=== PATIENT | male | born 1995 | race Caucasian/White ===

== ENCOUNTER 2019-02-12 12:49 | Emergency (ER) | payer SELFPAY ==
[2019-02-12] MEDS ORDERED: Sodium Chloride 0.9% 10 ML Syringe FLUSH PRN (12:59)
[2019-02-12] MEDS ORDERED: Sodium Chloride 0.9% 1,000 ML IV ONE ×2 (13:10→14:52)
[2019-02-12] MEDS ORDERED: LORazepam 2 MG/ML SDV IM ONE (13:25)
[2019-02-12] MEDS ORDERED: Norflurane/HFc 245FA Medium Stream Spray 103.5 ML Can ONE (13:51)
[2019-02-12] MEDS ORDERED: methylPREDNISolone Sodium Succinate 40 MG/1 ML SDV IVPUSH ONE (14:16)
[2019-02-12] MEDS ORDERED: cefTRIAXone 1 GM in Sodium Chloride 0.9% 100 ML IV ONE (14:18)
[2019-02-12] MEDS ORDERED: Morphine 2 MG/ML Syringe IVPUSH ONE (14:20)
[2019-02-12] MEDS ORDERED: diphenhydrAMINE 50 MG/ML SDV IVPUSH ONE (14:20)
[2019-02-12 14:35] LABS: CHLORIDE,CL 100 mmol/L (98-107); SODIUM,NA 135 mmol/L (136-145)
[2019-02-12 17:37] LABS: BARBITURATE SCREEN,URINE NEGATIVE (NEGATIVE); BENZODIAZEPINES SCREEN,URINE NEGATIVE (NEGATIVE); TCA SCREEN,URINE NEGATIVE (NEGATIVE); THC SCREEN,URINE 50 NG/ML NEGATIVE (NEGATIVE)
--- NOTE | 2019-02-12 17:50 | EDM.PDOC ---
ED HPI GENERAL MEDICAL PROBLEM - General Chief Complaint: ENT Problem Stated Complaint: sore throat, fever Time Seen by Provider: 02/12/19 13:09 Source of Information: Reports: Patient History Limitations: Reports: No Limitations - History of Present Illness INITIAL COMMENTS - FREE TEXT/NARRATIVE: Patient comes to ER complaining of severe sore throat, fever, present since Sunday. No nausea/emesis. Mild runny nose. No cough/SOB. No other pain complaint. ROS otherwise negative. Reports that he took 8 OTC Ibuprofen at once. 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 - Related Data Allergies Allergy/AdvReac Type Severity Reaction Status Date / Time No Known Allergies Allergy Verified 02/12/19 12:51 Home Meds: Home Meds Penicillin V Potassium 500 mg PO BID #20 tablet 02/12/19 [Rx] Past Medical History - Past Health History Medical/Surgical History: Denies Medical/Surgical History Psychiatric History: Reports: Addiction (Meth), Anxiety, Other (See Below) ( Self harm/cutting in past) Social & Family History - Tobacco Use Smoking Status *Q: Unknown Ever Smoked - Recreational Drug Use Recreational Drug Use: Yes Recreational Drug Type: Reports: Amphetamines (Speed), Marijuana/Hashish, Methamphetamine ED ROS ENT - Review of Systems Review Of Systems: ROS reveals no pertinent complaints other than HPI. ED EXAM, ENT - Physical Exam Exam: See Below Exam Limited By: No Limitations General Appearance: Alert, Anxious (extremely anxious, crying about having blood draw) Eye Exam: Bilateral Eye: EOMI, PERRL Ears: Normal External Exam, Normal Canal, Hearing Grossly Normal, Normal TMs Nose: Normal Inspection Mouth/Throat: Normal Lips, Pharyngeal Erythema, Tonsillar Erythema, Tonsillar Exudates, Tonsillar Swelling. No: Peritonsillar Mass, Throat Swelling, Tongue Swelling, Uvular Deviation, Uvular Edema Head: Atraumatic, Normocephalic Neck: Supple, Non-Tender. No: Lymphadenopathy (L), Lymphadenopathy (R) Respiratory/Chest: No Respiratory Distress, Lungs Clear, Normal Breath Sounds, No Accessory Muscle Use, Chest Non-Tender Cardiovascular: No Murmur, Tachycardia GI/Abdominal: Normal Bowel Sounds, Soft, Non-Tender, No Distention (Male) Exam: Deferred Rectal (Males) Exam: Deferred Back: No: CVA Tenderness (L), CVA Tenderness (R), Muscle Spasm, Paraspinal Tenderness, Vertebral Tenderness Extremities: Normal Range of Motion, Non-Tender, Slow Capillary Refill (mild) Neurological: Alert, Oriented, No Motor/Sensory Deficits Psychiatric: Anxious, Tearful Skin: Warm, Dry, Intact, Normal Color, No Rash Course - Vital Signs Last Recorded V/S: Last Vital Signs Temp 39.5 C H 02/12/19 12:54 Pulse 109 H 02/12/19 12:54 Resp 22 H 02/12/19 12:54 BP 108/59 L 02/12/19 12:54 Pulse Ox 99 02/12/19 12:54 - Orders/Labs/Meds Orders: Active Orders 24 hr Category Date Time Status Peripheral IV Care [RC] . DIRECTED Care 02/12/19 13:00 Active Sodium Chloride 0.9% [Saline Flush] Med 02/12/19 12:59 Active 10 ml FLUSH ASDIRECTED PRN Peripheral IV Insertion Adult [OM.PC] Routine Oth 02/12/19 12:59 Ordered Medication Orders Sodium Chloride (Saline Flush) 10 ml FLUSH ASDIRECTED PRN PRN Reason: Keep Vein Open Labs: Laboratory Tests 02/12/19 02/12/19 02/12/19 Range/Units 14:15 14:15 14:15 WBC 14.9 H (4.0-10.2) K/uL RBC 4.58 (4.33-5.41) M/uL Hgb 15.0 (13.1-16.8) g/dL Hct 41.9 (39.0-49.0) % MCV 91.5 (84.0-98.0) fL MCH 32.8 (28.2-33.3) pg MCHC 35.8 (31.7-36.0) g/dL RDW 12.2 (11.2-14.1) % Plt Count 183 (150-350) K/uL Neut % (Auto) 71.8 (45.0-80.0) % Lymph % (Auto) 15.8 (10.0-50.0) % Ralls % (Auto) 12.1 (2.0-14.0) % Eos % (Auto) 0.1 (0.0-5.0) % Baso % (Auto) 0.2 (0.0-2.0) % Neut # (Auto) 10.65 H (1.40-7.00) K/uL Lymph # (Auto) 2.35 (0.50-3.50) K/uL Ralls # (Auto) 1.80 H (0.00-1.00) K/uL Eos # (Auto) 0.02 (0.00-0.50) K/uL Baso # (Auto) 0.03 (0.00-0.20) K/uL Sodium 135 L (136-145) mmol/L Potassium 4.4 (3.5-5.1) mmol/L Chloride 100 (98-107) mmol/L Carbon Dioxide 24.7 (21.0-32.0) mmol/L BUN 12 (7-18) mg/dL Creatinine 0.97 (0.51-1.17) mg/dL Est Cr Clr Drug Dosing TNP Estimated GFR (MDRD) > 60 mL/min Glucose 93 (74-106) mg/dL Calcium 9.4 (8.5-10.1) mg/dL Total Bilirubin 0.7 (0.2-1.0) mg/dL AST 25 (15-37) U/L ALT 29 (12-78) U/L Alkaline Phosphatase 113 (46-116) IU/L Total Protein 7.7 (6.4-8.2) g/dL Albumin 3.4 (3.4-5.0) g/dL Specimen Type Urine Color Urine Appearance Urine pH (5.0-9.0) Ur Specific Anthony (1.005-1.030) Urine Protein (NEGATIVE) mg/dL Urine Glucose (UA) (NEGATIVE) mg/dL Urine Ketones (NEGATIVE) mg/dL Urine Occult Blood (NEGATIVE) Urine Nitrite (NEGATIVE) Urine Bilirubin (NEGATIVE) Urine Urobilinogen (0.2-1.0) E.U./dL Ur Leukocyte Esterase (NEGATIVE) Urine RBC /HPF Urine WBC /HPF Ur Epithelial Cells /LPF Urine Bacteria (NONE TO FEW) /HPF Urinalysis Comment Urine Opiates Screen (NEGATIVE) Urine Methadone Screen (NEGATIVE) U Acetaminophen Screen (NEGATIVE) Ur Barbiturates Screen (NEGATIVE) Ur Tricyclics Screen (NEGATIVE) Ur Phencyclidine Scrn (NEGATIVE) Ur Amphetamine Screen (NEGATIVE) U Methamphetamines Scrn (NEGATIVE) U Benzodiazepines Scrn (NEGATIVE) U Cocaine Metab Screen (NEGATIVE) U Marijuana (THC) Screen (NEGATIVE) Monoscreen Negative (NEGATIVE) 02/12/19 02/12/19 Range/Units 16:40 16:56 WBC (4.0-10.2) K/uL RBC (4.33-5.41) M/uL Hgb (13.1-16.8) g/dL Hct (39.0-49.0) % MCV (84.0-98.0) fL MCH (28.2-33.3) pg MCHC (31.7-36.0) g/dL RDW (11.2-14.1) % Plt Count (150-350) K/uL Neut % (Auto) (45.0-80.0) % Lymph % (Auto) (10.0-50.0) % Ralls % (Auto) (2.0-14.0) % Eos % (Auto) (0.0-5.0) % Baso % (Auto) (0.0-2.0) % Neut # (Auto) (1.40-7.00) K/uL Lymph # (Auto) (0.50-3.50) K/uL Ralls # (Auto) (0.00-1.00) K/uL Eos # (Auto) (0.00-0.50) K/uL Baso # (Auto) (0.00-0.20) K/uL Sodium (136-145) mmol/L Potassium (3.5-5.1) mmol/L Chloride (98-107) mmol/L Carbon Dioxide (21.0-32.0) mmol/L BUN (7-18) mg/dL Creatinine (0.51-1.17) mg/dL Est Cr Clr Drug Dosing Estimated GFR (MDRD) mL/min Glucose (74-106) mg/dL Calcium (8.5-10.1) mg/dL Total Bilirubin (0.2-1.0) mg/dL AST (15-37) U/L ALT (12-78) U/L Alkaline Phosphatase (46-116) IU/L Total Protein (6.4-8.2) g/dL Albumin (3.4-5.0) g/dL Specimen Type Urinblad Urine Color Yellow Urine Appearance Clear Urine pH 8.0 (5.0-9.0) Ur Specific Anthony 1.015 (1.005-1.030) Urine Protein 30 H (NEGATIVE) mg/dL Urine Glucose (UA) Negative (NEGATIVE) mg/dL Urine Ketones Negative (NEGATIVE) mg/dL Urine Occult Blood Negative (NEGATIVE) Urine Nitrite Negative (NEGATIVE) Urine Bilirubin Negative (NEGATIVE) Urine Urobilinogen 0.2 (0.2-1.0) E.U./dL Ur Leukocyte Esterase Negative (NEGATIVE) Urine RBC Not seen /HPF Urine WBC 0-5 /HPF Ur Epithelial Cells Occasional /LPF Urine Bacteria Few (NONE TO FEW) /HPF Urinalysis Comment Urine Opiates Screen Positive H (NEGATIVE) Urine Methadone Screen Negative (NEGATIVE) U Acetaminophen Screen Negative (NEGATIVE) Ur Barbiturates Screen Negative (NEGATIVE) Ur Tricyclics Screen Negative (NEGATIVE) Ur Phencyclidine Scrn Negative (NEGATIVE) Ur Amphetamine Screen Negative (NEGATIVE) U Methamphetamines Scrn Positive H (NEGATIVE) U Benzodiazepines Scrn Negative (NEGATIVE) U Cocaine Metab Screen Negative (NEGATIVE) U Marijuana (THC) Screen Negative (NEGATIVE) Monoscreen (NEGATIVE) Meds: Medications Generic Name Dose Route Start Last Admin Trade Name Freq PRN Reason Stop Dose Admin Sodium Chloride 10 ml 02/12/19 12:59 Saline Flush FLUSH ASDIRECTED PRN Keep Vein Open Discontinued Medications Generic Name Dose Route Start Last Admin Trade Name Freq PRN Reason Stop Dose Admin Diphenhydramine HCl 50 mg 02/12/19 14:20 02/12/19 14:26 Benadryl IVPUSH 02/12/19 14:21 50 mg ONETIME ONE Administration Sodium Chloride 1,000 mls @ 999 mls/hr 02/12/19 13:10 02/12/19 14:11 Normal Saline IV 02/12/19 14:10 999 mls/hr .BOLUS ONE Administration Ceftriaxone Sodium 1 gm/ 100 mls @ 200 mls/hr 02/12/19 14:18 02/12/19 14:27 Sodium Chloride IV 02/12/19 14:47 200 mls/hr ONETIME ONE Administration Sodium Chloride 1,000 mls @ 999 mls/hr 02/12/19 14:52 02/12/19 15:40 Normal Saline IV 02/12/19 15:52 999 mls/hr .BOLUS ONE Administration Lorazepam 2 mg 02/12/19 13:25 02/12/19 13:28 Ativan IM 02/12/19 13:26 2 mg ONETIME ONE Administration Methylprednisolone Sodium Succinate 40 mg 02/12/19 14:16 02/12/19 14:26 Solu-Medrol IVPUSH 02/12/19 14:17 40 mg ONETIME ONE Administration Morphine Sulfate 4 mg 02/12/19 14:20 02/12/19 14:26 Morphine IVPUSH 02/12/19 14:21 4 mg ONETIME ONE Administration Norflurane Confirm 02/12/19 13:51 02/12/19 16:31 Pain Ease [place] Administered 02/12/19 13:52 Not Given Dose 103.5 ml .ROUTE .STK-MED ONE - Re-Assessments/Exams Free Text/Narrative Re-Assessment/Exam: Rapid strep negative. Patient very anxious and tearful about blood draw and IV for IV fluids. Multiple attempts needed to establish an IV due to his tensing up/poor cooperation. Ultimately Ativan given to help with his anxiety. IV established. IV fluid bolus given. Also received Benadryl, small dose of MS for his pain complaint, and small dose of Solu-Medrol to help with throat discomfort. CBC showed elevated WBC. Patient calmed down and went to sleep. Additional liter of IV fluids given as heart rate remained elevated. Elevated pulse persisted despite the second liter of fluid. Given this, and his previous behavior, it was suspected that he may be under the influence of illicit drugs. UA was obtained. This was positive for Meth. Positive result discussed with patient's significant other. He said that patient was acting a bit weird since yesterday and has had issues using Meth in the past. Plan at this time is to call patient if strep culture positive and prescribe antibiotics if indicated. Encouraged patient to consider drug counseling/ treatment. Precautions reviewed. To follow up as needed. Departure - Departure Time of Disposition: 17:44 Disposition: Home, Self-Care 01 Condition: Good Clinical Impression: Methamphetamine abuse Pharyngitis Qualifiers: Pharyngitis/tonsillitis etiology: unspecified etiology Qualified Code(s): J02.9 - Acute pharyngitis, unspecified - Discharge Information *PRESCRIPTION DRUG MONITORING PROGRAM REVIEWED*: Not Applicable *COPY OF PRESCRIPTION DRUG MONITORING REPORT IN PATIENT BRENDA: Not Applicable Prescriptions: Penicillin V Potassium 500 mg PO BID #20 tablet Instructions: Pharyngitis, Varc-fl-Pesd, Stimulant Use Disorder- Methamphetamines Referrals: PCP,None [Primary Care Provider] - Forms: ED Department Discharge Additional Instructions: We will call you if your throat culture is positive for strep. If it is, then you will need to fill the antibiotic prescription to treat the strep. If this is a virus, antibiotics will not be of help. Rest, drink plenty of water. Stay hydrated. Tylenol can be taken but no more than 3 grams per day. Try to stick to 2 tablets every 6 hours otherwise it is hard on the liver. Do not take more than the recommended dose of Ibuprofen or Naprosyn as it can cause bleeding ulcers and kidney damage. Follow up as needed if you have further problems with the pharyngitis. Consider treatment/counseling for the meth use/any other drug use. Continued use of illicit drugs such as meth will lead to senior living damage of your body and possible early . - My Orders Last 24 Hours: My Active Orders 02/12/19 12:59 Sodium Chloride 0.9% [Saline Flush] 10 ml FLUSH ASDIRECTED PRN Peripheral IV Insertion Adult [OM.PC] Routine 02/12/19 13:00 Peripheral IV Care [RC] . DIRECTED - Assessment/Plan Last 24 Hours: My Active Orders 02/12/19 12:59 Sodium Chloride 0.9% [Saline Flush] 10 ml FLUSH ASDIRECTED PRN Peripheral IV Insertion Adult [OM.PC] Routine 02/12/19 13:00 Peripheral IV Care [RC] . DIRECTED
== END 2019-02-12 18:30 | disposition home or self-care (01) ==
LOC: LL.ED 12:49
DX: J02.9 Acute pharyngitis, unspecified (principal); F15.10 Other stimulant abuse, uncomplicated
CPT/HCPCS: 36415; 80053; 80305-QW; 81001; 85025; 86308; 87081; 87430; 96361; 96365; 96372; 96375; 99283-25; J0696; J1200; J2060; J2270; J2920; J7030; J7050